=== PATIENT | female | born 1935 | race Caucasian/White ===

== ENCOUNTER 2019-11-20 17:47 | Emergency (ER) | payer MEDICARE, OTHER ==
[~2019-11-20] VITALS: Ht 149.9 cm; Wt 71.3 kg
[2019-11-20] MEDS ORDERED: MORPHINE SULFATE 10 MG/ML SYRINGE. SQ ONE (18:15)
[2019-11-20] MEDS ORDERED: methylPREDNISolone ACETATE 40 MG/ML VIAL. IM ONE (18:15)
--- NOTE | 2019-11-20 18:20 | PHYS DOC ---
Past History Past Medical History: Arthritis, Cancer, Fibromyalgia Past Medical History Lymphoma- Chemo yesterday General Adult EDM: Chief Complaint: BACK PAIN OR INJURY HPI: HPI: ". I am hurting really bad.. have not been able go to therapy.. and I am having a really bad pain episode.. I usually see Dr. Carrera and Dr. Olmedo...I have not fallen or anything.." " I just need some meds for exacerbation of my chronic pain... I had my chemo yesterday... Sometimes I hurt really bad after chemo... And have to come in to see the doctor or the emergency room... The lidocaine patches are just not cutting it today.. " Patient is a 84 year old female who presents with above hx a Lymphoma and Arthritis pain exacerbation. Pt. has pain meds at home and not currently help with current pain flare. Patient declining labs at this time. Patient declining x-rays EKGs or further work-up at this time. Patient currently getting chemo for her lymphoma. No history of significant ill contacts. No recent travel outside the [place] area. Patient has planned follow-up with Dr. Olmedo and Dr. Antoine. Review of Systems: Review of Systems: Constitutional: Denies fever or chills Eyes: Denies change in visual acuity HENT: Denies nasal congestion or sore throat Respiratory: Denies cough or shortness of breath Cardiovascular: Denies chest pain or edema GI: Denies abdominal pain, nausea, vomiting, bloody stools or diarrhea : Complains of dysuria Musculoskeletal: Complains of exacerbation of her arthritic pain Integument: Denies rash Neurologic: Denies headache, focal weakness or sensory changes Endocrine: Denies polyuria or polydipsia Lymphatic: Denies swollen glands Psychiatric: Denies depression or anxiety Heart Score: Risk Factors: Risk Factors: DM, Current or recent (<one month) smoker, HTN, HLP, family history of CAD, obesity. Risk Scores: Score 0 - 3: 2.5% MACE over next 6 weeks - Discharge Home Score 4 - 6: 20.3% MACE over next 6 weeks - Admit for Clinical Observation Score 7 - 10: 72.7% MACE over next 6 weeks - Early Invasive Strategies Family History: Family History: Noncontributory to presentation Current Medications: Current Meds: Current Medications Medications (Trade) Dose Ordered Sig/Saurabh Start Time Stop Time Status Last Admin Dose Admin Methylprednisolone Acetate (DEPO-Medrol IM) 40 mg 1X ONCE 11/20/19 18:15 11/20/19 18:16 UNV Morphine Sulfate (Morphine 10mg Syringe) 10 mg 1X ONCE 11/20/19 18:15 11/20/19 18:16 UNV Allergies: Allergies: Allergic to penicillin and lisinopril Physical Exam: PE: Constitutional: Moderate acute distress, chronically ill and appearance. [] HENT: Normocephalic, atraumatic, bilateral external ears normal, oropharynx moist, no oral exudates, nose normal. [] Eyes: PERRLA, EOMI, conjunctiva normal, no discharge. [] Neck: Normal range of motion, no tenderness, supple, no stridor. [] Cardiovascular:Heart rate regular rhythm, no murmur [] Lungs & Thorax: Bilateral breath sounds equal at apex auscultation [] old s urgical scar Abdomen: Bowel sounds normal, soft, no tenderness, no masses, no pulsatile masses. [] Old surgical scar Skin: Warm, dry, no erythema, no rash. [] Back: No tenderness, no CVA tenderness. [] Extremities: No tenderness, no cyanosis, no clubbing, ROM intact, no edema. [] Port in left arm. Arthritic changes Neurologic: Alert and oriented X 3, normal motor function, normal sensory function, no focal deficits noted. [] Psychologic: Affect anxious, judgement normal, mood normal. [] EKG: EKG: [] Radiology/Procedures: Radiology/Procedures: [] Course & Med Decision Making: Course & Med Decision Making Pertinent Labs and Imaging studies reviewed. (See chart for details) Patient keep follow-up with Dr. Carrera and Dr. Olmedo. Patient to give a trial of fentanyl patch 25 mics remove every 3 days. Patient continue her lidocaine patches. Patient return if desires further evaluation at this time. Impression: 1. Chronic pain-exacerbation 2. Lymphoma-on chemotherapy 3. History of fibromyalgia 4. Arthritis [] Dragon Disclaimer: Dragon Disclaimer: This electronic medical record was generated, in whole or in part, using a voice recognition dictation system. Departure Departure: Disposition: HOME/RESIDENCE PRIOR TO ADM Condition: STABLE Referrals: CHRISTOPHER CARRERA MD (PCP) Scripts Fentanyl (FENTANYL 25mcg/hr) 1 Each Patch.td72 1 PATCH TP Q3DAYS for pain, #10 PATCH Prov: REYMUNDO PECK MD 11/20/19 Walter Disclaimer This chart was dictated in whole or in part using Voice Recognition software in a busy, high-work load, and often noisy Emergency Department environment. It may contain unintended and wholly unrecognized errors or omissions. REYMUNDO PECK MD Nov 20, 2019 18:20
[2019-11-20] MEDS ORDERED: FENT1PAT15 TP (18:26)
[2019-11-20 19:30] VITALS: BP 138/79
== END 2019-11-20 19:39 | disposition home or self-care (01) ==
LOC: ER 17:47
DX: G89.29 Other chronic pain (principal); C85.90 Non-Hodgkin lymphoma, unspecified, unspecified site; R30.0 Dysuria; M79.7 Fibromyalgia; M19.90 Unspecified osteoarthritis, unspecified site; Z88.0 Allergy status to penicillin
CPT/HCPCS: 96372; 99284; J1030; J2270

== ENCOUNTER 2019-11-21 11:07 | Emergency (ER) | payer MEDICARE, OTHER ==
[2019-11-20 19:30] VITALS: BP 138/79
[~2019-11-21] VITALS: Ht 149.9 cm; Wt 71.3 kg
[~2019-11-21 11:07] MED LIST: FENT1PAT15 TP
--- NOTE | 2019-11-21 11:36 | PHYS DOC ---
Past History Past Medical History: Arthritis, Cancer, Fibromyalgia Additional Past Medical Histor: Lymphoma Past Surgical History: Appendectomy, Cholecystectomy, Tonsillectomy Alcohol Use: None General Adult EDM: Chief Complaint: BACK PAIN OR INJURY HPI: HPI: The history was obtained from the patient. Patient is a 84-year-old female with PMH lymphoma and arthritis who presents with a chief complaint of neck pain. Patient states she has a history of chronic upper back pain. She states that she is currently receiving chemotherapy for lymphoma. She states that she typically gets neck and back pain after she received chemotherapy. She states she did receive chemotherapy 2 days ago. She notes she was seen in our emergency department last night. She was discharged home with prescription for fentanyl patches. She states she has not been able to fill the prescription because the pharmacy has not been open. However, she then states that the pharmacy could be open at this time. She states that she has tried Tylenol at home with minimal relief. Denies falls or trauma. Denies numbness or weakness to the upper extremities. Denies any fevers. Denies vomiting. Denies any ill contacts. Denies any travel outside of the area. States that she does have follow-up with Drs. Alo Carrera. States his back pain feels similar to her other flares. Denies chest pain or shortness of breath. Denies syncope. States it is difficult for her to sleep secondary to the pain. Review of Systems: Review of Systems: Constitutional: Denies fever or chills Eyes: Denies change in visual acuity HENT: Denies nasal congestion or sore throat Respiratory: Denies cough or shortness of breath Cardiovascular: Denies chest pain or edema GI: Denies abdominal pain, nausea, vomiting, bloody stools or diarrhea : Denies dysuria Musculoskeletal: Denies back pain or joint pain Integument: Denies rash Neurologic: Denies headache, focal weakness or sensory changes Endocrine: Denies polyuria or polydipsia Lymphatic: Denies swollen glands Psychiatric: Denies depression or anxiety Heart Score: Risk Factors: Risk Factors: DM, Current or recent (<one month) smoker, HTN, HLP, family history of CAD, obesity. Risk Scores: Score 0 - 3: 2.5% MACE over next 6 weeks - Discharge Home Score 4 - 6: 20.3% MACE over next 6 weeks - Admit for Clinical Observation Score 7 - 10: 72.7% MACE over next 6 weeks - Early Invasive Strategies Allergies: Allergies: Allergies Coded Allergies Type Severity Reaction Last Updated Verified Penicillins Allergy Intermediate 11/20/19 Yes lisinopril Allergy Intermediate 11/20/19 Yes Physical Exam: PE: Constitutional: Well developed, well nourished, no acute distress, non-toxic appearance. [] HENT: Normocephalic, atraumatic, bilateral external ears normal, oropharynx moist, no oral exudates, nose normal. [] Eyes: PERRLA, EOMI, conjunctiva normal, no discharge. [] Neck: Normal range of motion, no tenderness, supple, no stridor. [] Cardiovascular:Heart rate regular rhythm, no murmur [] Lungs & Thorax: Bilateral breath sounds clear to auscultation [] Abdomen: soft, no tenderness, no masses, no pulsatile masses. [] Skin: Warm, dry, no erythema, no rash. [] Back: + 5/5 motor strength in dorsiflexion and plantarflexion of the great toes bilaterally. Plus out of 5 strength in the upper extremities bilaterally. Judicial Law [employer] strength intact. Cardinal hand movements intact. Sensation intact between the webbing of the first and second toes bilaterally. Sensation intact in the median, ulnar, and radial nerve distributions bilaterally. Extremities: No tenderness, no cyanosis, no clubbing, ROM intact, no edema. [] Neurologic: Alert with intact cognitive function. No aphasia, dysarthria, or neglect. GCS 15. Pupils 3 mm briskly reactive b/l. No APD present. Cranial nerves 2-12 grossly intact; no facial asymmetry present, tongue midline, shoulder shrugging strength intact. Strength 5/5 and symmetric throughout. Light touch sensation intact throughout. Cerebellar testing appropriate without evidence of dysdiadochokinesia. DTR's 2+ in all 4 extremities. Negative pronator drift bilaterally. Gait normal Psychologic: Affect normal, judgement normal, mood normal. [] Current Patient Data: Vital Signs: Vital Signs Date Time Temp Pulse Resp B/P (MAP) Pulse Ox O2 Delivery O2 Flow Rate FiO2 11/21/19 11:17 98.2 87 16 165/48 (87) 93 Room Air EKG: EKG: [] Radiology/Procedures: Radiology/Procedures: [address] [address] IMAGING REPORT Signed PATIENT: FARSHAD PUGA ACCOUNT: [id number] : 1935 LOCATION: ER AGE: 84 SEX: F EXAM STATUS: REG ER ORD. PHYSICIAN: DAVID MCKINLEY DO REASON: back pain with hx lymphoma PROCEDURE: CT LUMBAR SPINE WO CONTRAST EXAM: CT Head without IV contrast INDICATION: Reason: back pain with hx lymphoma / Spl. Instructions: / History: TECHNIQUE: Multi-detector row CT images were obtained of the head without the use of IV contrast. All CT scans performed at this facility utilize dose optimization techniques as appropriate to the exam, including the following: Automated exposure control and adjustment of the mA and/or KV according to patient size (this includes techniques or standardized protocols for targeted exams where dose is indication/reason for exam). COMPARISON: None FINDINGS: BRAIN PARENCHYMA: No evidence of acute intraparenchymal hemorrhage or infarct. Generalized parenchymal atrophy and white matter low density compatible with chronic ischemic microvascular changes present. VENTRICLES & EXTRA-AXIAL SPACES: Ventricles are within normal limits. Basilar cisterns are patent. No pathologic extra-axial fluid collection or mass. ORBITS: Orbital contents are unremarkable. SINUSES: Visualized paranasal sinuses and mastoid air cells are clear. OSSEOUS & SOFT TISSUES: Calvarium and skull base are intact. IMPRESSION: No acute intracranial pathology. EXAM: CT Cervical Spine without IV contrast INDICATION: Reason: back pain with hx lymphoma / Spl. Instructions: / History: TECHNIQUE: Multi-detector row CT images were obtained through the cervical spine without the use of IV contrast. Post-processing sagittal and coronal reconstructed images were obtained for interpretation. All CT scans performed at this facility utilize dose optimization techniques as appropriate to the exam, including the following: Automated exposure control and adjustment of the mA and/or KV according to patient size (this includes techniques or standardized protocols for targeted exams where dose is indication/reason for exam). COMPARISON: None FINDINGS: CRANIOCERVICAL JUNCTION: Unremarkable. ALIGNMENT: Mild reversal of normal cervical lordosis apex at C5. Minimal anterolisthesis of C4-C5 and retrolisthesis of C6 on C7. OSSEOUS: Diffuse demineralization. DISC SPACES: Multilevel disc degenerative changes most conspicuous at C5-C6 and C6-C7. FACET JOINTS: Facet degenerative changes best appreciated bilaterally at C3-C4. No jumped facets and no facet fractures seen. SPINAL CANAL: Mild narrowing of the central canal due to anterolisthesis is suggested at C4-C5 but high-grade central canal stenosis is not shown on limited assessment without intrathecal contrast. NEUROFORAMINA: Varying degrees of mild foraminal narrowing. SOFT TISSUES: No acute findings. No bulky adenopathy in the included field of view. IMPRESSION: No acute findings in the cervical spine. In particular, no fracture or aggressive appearing osseous lesions noted. EXAM: CT Thoracic Spine without IV contrast INDICATION: Reason: back pain with hx lymphoma / Spl. Instructions: / History: TECHNIQUE: Multi-detector row CT images were obtained through the thoracic spine without the use of IV contrast. Post-processing sagittal and coronal reconstructed images were obtained for interpretation. All CT scans performed at this facility utilize dose optimization techniques as appropriate to the exam, including the following: Automated exposure control and adjustment of the mA and/or KV according to patient size (this includes techniques or standardized protocols for targeted exams where dose is indication/reason for exam). COMPARISON: None FINDINGS: ALIGNMENT: Alignment is within normal limits. OSSEOUS: Mild generalized diffuse osteopenia. No fracture or aggressive osseous lesions seen. DISC SPACES: Multilevel disc degenerative change in the thoracic spine. FACET JOINTS: Unremarkable. SPINAL CANAL: Unremarkable. NEUROFORAMINA: Unremarkable. SOFT TISSUES: Unremarkable. IMPRESSION: No acute or aggressive osseous lesions in the thoracic spine with mild multilevel degenerative changes noted. EXAM: CT Lumbar Spine without IV contrast INDICATION: Reason: back pain with hx lymphoma / Spl. Instructions: / History: TECHNIQUE: Multi-detector row CT images were obtained through the lumbar spine without the use of IV contrast. Post-processing sagittal and coronal reconstructed images were obtained for interpretation. All CT scans performed at this facility utilize dose optimization techniques as appropriate to the exam, including the following: Automated exposure control and adjustment of the mA and/or KV according to patient size (this includes techniques or standardized protocols for targeted exams where dose is indication/reason for exam). COMPARISON: None FINDINGS: There are 5 lumbar type vertebrae. The lumbar spine has a transitional vertebra referred to as S1 with a rudimentary disc at S1-S2. ALIGNMENT: Alignment shows grade 1 anterolisthesis of L4 on L5 and is otherwise unremarkable. OSSEOUS: Bones are diffusely osteopenic with no fracture or aggressive appearing osseous lesions identified. DISC SPACES: Narrowing at multiple levels is present most conspicuously at L4-5 and at L5-S1. FACET JOINTS: Facet hypertrophic change at L4-L5 is noted to the greatest degree. SPINAL CANAL: No significant bony central canal stenosis is apparent. NEUROFORAMINA: Mild bony narrowing at L4-L5 and L5-S1 bilaterally. SOFT TISSUES: Extensive colonic diverticulosis in the visualized large bowel. Dense calcification of the abdominal aorta without evidence of aneurysmal dilation in the included portion. IMPRESSION: Lumbar spinal degenerative spondylosis with no acute or aggressive appearing osseous lesions noted. Transitional S1 is present. Electronically signed by: Husam Reddy MD (11/21/2019 12:30 PM) [facility] [place] BY: HUSAM REDDY MD DATE: 11/21/191229 CC: CHRISTOPHER CARRERA MD; DAVID MCKINLEY DO ~ [place] [address] IMAGING REPORT Signed PATIENT: FARSHAD PUGA ACCOUNT: [id number] : 1935 LOCATION: ER AGE: 84 SEX: F EXAM STATUS: REG ER ORD. PHYSICIAN: DAVID MCKINLEY DO REASON: back pain with hx lymphoma PROCEDURE: CT THORACIC SPINE WO CONTRAST EXAM: CT Head without IV contrast INDICATION: Reason: back pain with hx lymphoma / Spl. Instructions: / History: TECHNIQUE: Multi-detector row CT images were obtained of the head without the use of IV contrast. All CT scans performed at this facility utilize dose optimization techniques as appropriate to the exam, including the following: Automated exposure control and adjustment of the mA and/or KV according to patient size (this includes techniques or standardized protocols for targeted exams where dose is indication/reason for exam). COMPARISON: None FINDINGS: BRAIN PARENCHYMA: No evidence of acute intraparenchymal hemorrhage or infarct. Generalized parenchymal atrophy and white matter low density compatible with chronic ischemic microvascular changes present. VENTRICLES & EXTRA-AXIAL SPACES: Ventricles are within normal limits. Basilar cisterns are patent. No pathologic extra-axial fluid collection or mass. ORBITS: Orbital contents are unremarkable. SINUSES: Visualized paranasal sinuses and mastoid air cells are clear. OSSEOUS & SOFT TISSUES: Calvarium and skull base are intact. IMPRESSION: No acute intracranial pathology. EXAM: CT Cervical Spine without IV contrast INDICATION: Reason: back pain with hx lymphoma / Spl. Instructions: / History: TECHNIQUE: Multi-detector row CT images were obtained through the cervical spine without the use of IV contrast. Post-processing sagittal and coronal reconstructed images were obtained for interpretation. All CT scans performed at this facility utilize dose optimization techniques as appropriate to the exam, including the following: Automated exposure control and adjustment of the mA and/or KV according to patient size (this includes techniques or standardized protocols for targeted exams where dose is indication/reason for exam). COMPARISON: None FINDINGS: CRANIOCERVICAL JUNCTION: Unremarkable. ALIGNMENT: Mild reversal of normal cervical lordosis apex at C5. Minimal anterolisthesis of C4-C5 and retrolisthesis of C6 on C7. OSSEOUS: Diffuse demineralization. DISC SPACES: Multilevel disc degenerative changes most conspicuous at C5-C6 and C6-C7. FACET JOINTS: Facet degenerative changes best appreciated bilaterally at C3-C4. No jumped facets and no facet fractures seen. SPINAL CANAL: Mild narrowing of the central canal due to anterolisthesis is suggested at C4-C5 but high-grade central canal stenosis is not shown on limited assessment without intrathecal contrast. NEUROFORAMINA: Varying degrees of mild foraminal narrowing. SOFT TISSUES: No acute findings. No bulky adenopathy in the included field of view. IMPRESSION: No acute findings in the cervical spine. In particular, no fracture or aggressive appearing osseous lesions noted. EXAM: CT Thoracic Spine without IV contrast INDICATION: Reason: back pain with hx lymphoma / Spl. Instructions: / History: TECHNIQUE: Multi-detector row CT images were obtained through the thoracic spine without the use of IV contrast. Post-processing sagittal and coronal reconstructed images were obtained for interpretation. All CT scans performed at this facility utilize dose optimization techniques as appropriate to the exam, including the following: Automated exposure control and adjustment of the mA and/or KV according to patient size (this includes techniques or standardized protocols for targeted exams where dose is indication/reason for exam). COMPARISON: None FINDINGS: ALIGNMENT: Alignment is within normal limits. OSSEOUS: Mild generalized diffuse osteopenia. No fracture or aggressive osseous lesions seen. DISC SPACES: Multilevel disc degenerative change in the thoracic spine. FACET JOINTS: Unremarkable. SPINAL CANAL: Unremarkable. NEUROFORAMINA: Unremarkable. SOFT TISSUES: Unremarkable. IMPRESSION: No acute or aggressive osseous lesions in the thoracic spine with mild multilevel degenerative changes noted. EXAM: CT Lumbar Spine without IV contrast INDICATION: Reason: back pain with hx lymphoma / Spl. Instructions: / History: TECHNIQUE: Multi-detector row CT images were obtained through the lumbar spine without the use of IV contrast. Post-processing sagittal and coronal reconstructed images were obtained for interpretation. All CT scans performed at this facility utilize dose optimization techniques as appropriate to the exam, including the following: Automated exposure control and adjustment of the mA and/or KV according to patient size (this includes techniques or standardized protocols for targeted exams where dose is indication/reason for exam). COMPARISON: None FINDINGS: There are 5 lumbar type vertebrae. The lumbar spine has a transitional vertebra referred to as S1 with a rudimentary disc at S1-S2. ALIGNMENT: Alignment shows grade 1 anterolisthesis of L4 on L5 and is otherwise unremarkable. OSSEOUS: Bones are diffusely osteopenic with no fracture or aggressive appearing osseous lesions identified. DISC SPACES: Narrowing at multiple levels is present most conspicuously at L4-5 and at L5-S1. FACET JOINTS: Facet hypertrophic change at L4-L5 is noted to the greatest degree. SPINAL CANAL: No significant bony central canal stenosis is apparent. NEUROFORAMINA: Mild bony narrowing at L4-L5 and L5-S1 bilaterally. SOFT TISSUES: Extensive colonic diverticulosis in the visualized large bowel. Dense calcification of the abdominal aorta without evidence of aneurysmal dilation in the included portion. IMPRESSION: Lumbar spinal degenerative spondylosis with no acute or aggressive appearing osseous lesions noted. Transitional S1 is present. Electronically signed by: Husam Reddy MD (11/21/2019 12:30 PM) [facility] [place] BY: HUSAM REDDY MD DATE: 11/21/19 1230 CC: CHRISTOPHER CARRERA MD; DVAID MCKINLEY DO ~ [address] [address] IMAGING REPORT Signed PATIENT: FARSHAD PUGA ACCOUNT: [id number] : 1935 LOCATION: ER AGE: 84 SEX: F EXAM STATUS: REG ER ORD. PHYSICIAN: DAVID MCKINLEY DO REASON: neck pain radiating to posterior occiput PROCEDURE: CT HEAD AND CERVICAL SPINE WO EXAM: CT Head without IV contrast INDICATION: Reason: back pain with hx lymphoma / Spl. Instructions: / History: TECHNIQUE: Multi-detector row CT images were obtained of the head without the use of IV contrast. All CT scans performed at this facility utilize dose optimization techniques as appropriate to the exam, including the following: Automated exposure control and adjustment of the mA and/or KV according to patient size (this includes techniques or standardized protocols for targeted exams where dose is indication/reason for exam). COMPARISON: None FINDINGS: BRAIN PARENCHYMA: No evidence of acute intraparenchymal hemorrhage or infarct. Generalized parenchymal atrophy and white matter low density compatible with chronic ischemic microvascular changes present. VENTRICLES & EXTRA-AXIAL SPACES: Ventricles are within normal limits. Basilar cisterns are patent. No pathologic extra-axial fluid collection or mass. ORBITS: Orbital contents are unremarkable. SINUSES: Visualized paranasal sinuses and mastoid air cells are clear. OSSEOUS & SOFT TISSUES: Calvarium and skull base are intact. IMPRESSION: No acute intracranial pathology. EXAM: CT Cervical Spine without IV contrast INDICATION: Reason: back pain with hx lymphoma / Spl. Instructions: / History: TECHNIQUE: Multi-detector row CT images were obtained through the cervical spine without the use of IV contrast. Post-processing sagittal and coronal reconstructed images were obtained for interpretation. All CT scans performed at this facility utilize dose optimization techniques as appropriate to the exam, including the following: Automated exposure control and adjustment of the mA and/or KV according to patient size (this includes techniques or standardized protocols for targeted exams where dose is indication/reason for exam). COMPARISON: None FINDINGS: CRANIOCERVICAL JUNCTION: Unremarkable. ALIGNMENT: Mild reversal of normal cervical lordosis apex at C5. Minimal anterolisthesis of C4-C5 and retrolisthesis of C6 on C7. OSSEOUS: Diffuse demineralization. DISC SPACES: Multilevel disc degenerative changes most conspicuous at C5-C6 and C6-C7. FACET JOINTS: Facet degenerative changes best appreciated bilaterally at C3-C4. No jumped facets and no facet fractures seen. SPINAL CANAL: Mild narrowing of the central canal due to anterolisthesis is suggested at C4-C5 but high-grade central canal stenosis is not shown on limited assessment without intrathecal contrast. NEUROFORAMINA: Varying degrees of mild foraminal narrowing. SOFT TISSUES: No acute findings. No bulky adenopathy in the included field of view. IMPRESSION: No acute findings in the cervical spine. In particular, no fracture or aggressive appearing osseous lesions noted. EXAM: CT Thoracic Spine without IV contrast INDICATION: Reason: back pain with hx lymphoma / Spl. Instructions: / History: TECHNIQUE: Multi-detector row CT images were obtained through the thoracic spine without the use of IV contrast. Post-processing sagittal and coronal reconstructed images were obtained for interpretation. All CT scans performed at this facility utilize dose optimization techniques as appropriate to the exam, including the following: Automated exposure control and adjustment of the mA and/or KV according to patient size (this includes techniques or standardized protocols for targeted exams where dose is indication/reason for exam). COMPARISON: None FINDINGS: ALIGNMENT: Alignment is within normal limits. OSSEOUS: Mild generalized diffuse osteopenia. No fracture or aggressive osseous lesions seen. DISC SPACES: Multilevel disc degenerative change in the thoracic spine. FACET JOINTS: Unremarkable. SPINAL CANAL: Unremarkable. NEUROFORAMINA: Unremarkable. SOFT TISSUES: Unremarkable. IMPRESSION: No acute or aggressive osseous lesions in the thoracic spine with mild multilevel degenerative changes noted. EXAM: CT Lumbar Spine without IV contrast INDICATION: Reason: back pain with hx lymphoma / Spl. Instructions: / History: TECHNIQUE: Multi-detector row CT images were obtained through the lumbar spine without the use of IV contrast. Post-processing sagittal and coronal reconstructed images were obtained for interpretation. All CT scans performed at this facility utilize dose optimization techniques as appropriate to the exam, including the following: Automated exposure control and adjustment of the mA and/or KV according to patient size (this includes techniques or standardized protocols for targeted exams where dose is indication/reason for exam). COMPARISON: None FINDINGS: There are 5 lumbar type vertebrae. The lumbar spine has a transitional vertebra referred to as S1 with a rudimentary disc at S1-S2. ALIGNMENT: Alignment shows grade 1 anterolisthesis of L4 on L5 and is otherwise unremarkable. OSSEOUS: Bones are diffusely osteopenic with no fracture or aggressive appearing osseous lesions identified. DISC SPACES: Narrowing at multiple levels is present most conspicuously at L4-5 and at L5-S1. FACET JOINTS: Facet hypertrophic change at L4-L5 is noted to the greatest degree. SPINAL CANAL: No significant bony central canal stenosis is apparent. NEUROFORAMINA: Mild bony narrowing at L4-L5 and L5-S1 bilaterally. SOFT TISSUES: Extensive colonic diverticulosis in the visualized large bowel. Dense calcification of the abdominal aorta without evidence of aneurysmal dilation in the included portion. IMPRESSION: Lumbar spinal degenerative spondylosis with no acute or aggressive appearing osseous lesions noted. Transitional S1 is present. Electronically signed by: Husam Reddy MD (11/21/2019 12:30 PM) [facility] [place] S[place] BY: HUSAM REDDY MD DATE: 11/21/19 1235 CC: CHRISTOPHER CARRERA MD; DAVID MCKINLEY DO ~ [] Course & Med Decision Making: Course & Med Decision Making Pertinent Labs and Imaging studies reviewed. (See chart for details) [] Patient is an 84-year-old female who presents with chief complaint of acute on chronic upper back pain radiating to her head. She states she typically experiences the symptoms after receiving chemotherapy for her lymphoma which she did receive 2 days ago. On chart review patient was seen in our facility yesterday evening and declined work-up at that time. She was discharged home with medications. She states that she has not gone to the pharmacy yet to fill those medications. Is unclear why she chose to return the emergency department and not go to the pharmacy. She states that she would like imaging performed at this time. This was obtained and was grossly unremarkable. She has declined laboratory work-up. I do feel this is most likely acute on chronic back pain. On repeat examination patient states her symptoms have been well controlled at this time. No further prescription blood prescribed she does have an active narcotic prescription at home. She was encouraged to use anti-inflammatories as needed. She was instructed to follow-up with her primary care physician in the next 2 to 3 days. Her precautions were discussed and understood. Her repeat exam remains benign without neurologic deficit. She has been able to ambulate tolerated p.o. in the emergency department. Vital signs been stable. Stable for discharge home. Dragon Disclaimer: DragClinithink Disclaimer: This electronic medical record was generated, in whole or in part, using a voice recognition dictation system. Departure Departure: Impression: Primary Impression: Back pain Qualified Codes: M54.9 - Dorsalgia, unspecified; G89.29 - Other chronic pain Disposition: 01 HOME/RESIDENCE PRIOR TO ADM Condition: STABLE Referrals: CHRISTOPHER CARRERA MD (PCP) Patient Instructions: Back Exercises, Back Pain, Adult Additional Instructions: Please follow-up with your primary care physician in the next 2 to 3 days. DAVID MCKINLEY DO Nov 21, 2019 11:35
[2019-11-21] MEDS ORDERED: HYDROcodone/APAP 5/325MG 1 TAB TABLET PO ONE (11:45)
[2019-11-21] MEDS ORDERED: LIDOCAINE (700MG/PATCH) PATCH. TD SCH (11:45)
[2019-11-21] MEDS ORDERED: CYCLOBENZAPRINE 10 MG TABLET. PO ONE (11:45)
--- NOTE | 2019-11-21 12:33 | RAD ---
EXAM: CT Head without IV contrast INDICATION: Reason: back pain with hx lymphoma / Spl. Instructions: / History: TECHNIQUE: Multi-detector row CT images were obtained of the head without the use of IV contrast. All CT scans performed at this facility utilize dose optimization techniques as appropriate to the exam, including the following: Automated exposure control and adjustment of the mA and/or KV according to patient size (this includes techniques or standardized protocols for targeted exams where dose is indication/reason for exam). COMPARISON: None FINDINGS: BRAIN PARENCHYMA: No evidence of acute intraparenchymal hemorrhage or infarct. Generalized parenchymal atrophy and white matter low density compatible with chronic ischemic microvascular changes present. VENTRICLES & EXTRA-AXIAL SPACES: Ventricles are within normal limits. Basilar cisterns are patent. No pathologic extra-axial fluid collection or mass. ORBITS: Orbital contents are unremarkable. SINUSES: Visualized paranasal sinuses and mastoid air cells are clear. OSSEOUS & SOFT TISSUES: Calvarium and skull base are intact. IMPRESSION: No acute intracranial pathology. EXAM: CT Cervical Spine without IV contrast INDICATION: Reason: back pain with hx lymphoma / Spl. Instructions: / History: TECHNIQUE: Multi-detector row CT images were obtained through the cervical spine without the use of IV contrast. Post-processing sagittal and coronal reconstructed images were obtained for interpretation. All CT scans performed at this facility utilize dose optimization techniques as appropriate to the exam, including the following: Automated exposure control and adjustment of the mA and/or KV according to patient size (this includes techniques or standardized protocols for targeted exams where dose is indication/reason for exam). COMPARISON: None FINDINGS: CRANIOCERVICAL JUNCTION: Unremarkable. ALIGNMENT: Mild reversal of normal cervical lordosis apex at C5. Minimal anterolisthesis of C4-C5 and retrolisthesis of C6 on C7. OSSEOUS: Diffuse demineralization. DISC SPACES: Multilevel disc degenerative changes most conspicuous at C5-C6 and C6-C7. FACET JOINTS: Facet degenerative changes best appreciated bilaterally at C3-C4. No jumped facets and no facet fractures seen. SPINAL CANAL: Mild narrowing of the central canal due to anterolisthesis is suggested at C4-C5 but high-grade central canal stenosis is not shown on limited assessment without intrathecal contrast. NEUROFORAMINA: Varying degrees of mild foraminal narrowing. SOFT TISSUES: No acute findings. No bulky adenopathy in the included field of view. IMPRESSION: No acute findings in the cervical spine. In particular, no fracture or aggressive appearing osseous lesions noted. EXAM: CT Thoracic Spine without IV contrast INDICATION: Reason: back pain with hx lymphoma / Spl. Instructions: / History: TECHNIQUE: Multi-detector row CT images were obtained through the thoracic spine without the use of IV contrast. Post-processing sagittal and coronal reconstructed images were obtained for interpretation. All CT scans performed at this facility utilize dose optimization techniques as appropriate to the exam, including the following: Automated exposure control and adjustment of the mA and/or KV according to patient size (this includes techniques or standardized protocols for targeted exams where dose is indication/reason for exam). COMPARISON: None FINDINGS: ALIGNMENT: Alignment is within normal limits. OSSEOUS: Mild generalized diffuse osteopenia. No fracture or aggressive osseous lesions seen. DISC SPACES: Multilevel disc degenerative change in the thoracic spine. FACET JOINTS: Unremarkable. SPINAL CANAL: Unremarkable. NEUROFORAMINA: Unremarkable. SOFT TISSUES: Unremarkable. IMPRESSION: No acute or aggressive osseous lesions in the thoracic spine with mild multilevel degenerative changes noted. EXAM: CT Lumbar Spine without IV contrast INDICATION: Reason: back pain with hx lymphoma / Spl. Instructions: / History: TECHNIQUE: Multi-detector row CT images were obtained through the lumbar spine without the use of IV contrast. Post-processing sagittal and coronal reconstructed images were obtained for interpretation. All CT scans performed at this facility utilize dose optimization techniques as appropriate to the exam, including the following: Automated exposure control and adjustment of the mA and/or KV according to patient size (this includes techniques or standardized protocols for targeted exams where dose is indication/reason for exam). COMPARISON: None FINDINGS: There are 5 lumbar type vertebrae. The lumbar spine has a transitional vertebra referred to as S1 with a rudimentary disc at S1-S2. ALIGNMENT: Alignment shows grade 1 anterolisthesis of L4 on L5 and is otherwise unremarkable. OSSEOUS: Bones are diffusely osteopenic with no fracture or aggressive appearing osseous lesions identified. DISC SPACES: Narrowing at multiple levels is present most conspicuously at L4-5 and at L5-S1. FACET JOINTS: Facet hypertrophic change at L4-L5 is noted to the greatest degree. SPINAL CANAL: No significant bony central canal stenosis is apparent. NEUROFORAMINA: Mild bony narrowing at L4-L5 and L5-S1 bilaterally. SOFT TISSUES: Extensive colonic diverticulosis in the visualized large bowel. Dense calcification of the abdominal aorta without evidence of aneurysmal dilation in the included portion. IMPRESSION: Lumbar spinal degenerative spondylosis with no acute or aggressive appearing osseous lesions noted. Transitional S1 is present. Electronically signed by: Amador Reddy MD (11/21/2019 12:30 PM) [facility] [place]
== END 2019-11-21 13:04 | disposition home or self-care (01) ==
LOC: ER 11:07
DX: G89.29 Other chronic pain (principal); M54.6 Pain in thoracic spine; M54.2 Cervicalgia; M19.90 Unspecified osteoarthritis, unspecified site; M79.7 Fibromyalgia; Z90.89 Acquired absence of other organs; Z90.49 Acquired absence of other specified parts of digestive tract; Z85.72 Personal history of non-Hodgkin lymphomas
CPT/HCPCS: 70450; 72125; 72128; 72131; 99285